=== PATIENT | male | born 1965 | race Caucasian/White ===

== ENCOUNTER 2025-02-12 22:55 | Emergency (ER) | payer SELFPAY ==
[2025-02-12 22:57] VITALS: BP 100/63
[2025-02-12 23:00] VITALS: BP 95/56
[2025-02-12 23:35] LABS: Hematocrit 39.0 % (39.0-52.0); Hemoglobin 13.0 g/dL (13.0-18.0); Mean Corp Hgb Conc. 33.3 g/dL (33.0-37.0); Mean Corpuscular Volume 98.7 fL (80.0-94.0); Nucleated Red Blood Cells % 0 % (-); Platelet Count 238 10^3/uL (130-400); Red Cell Dist. Width 12.7 % (11.5-14.5)
[2025-02-12 23:57] LABS: ALT (SGPT) 18 U/L (0-50); AST (SGOT) 27 U/L (17-59); Albumin 3.5 g/dl (3.5-5.0); Alkaline Phosphatase 44 U/L (38-126); Blood Urea Nitrogen 6 mg/dl (9-20); Calcium 8.3 mg/dl (8.4-10.2); Carbon Dioxide 27 mmol/L (22-30); Chloride 108 mmol/L (98-107); Estimated Creatinine Clearance 80 ml/min; Glucose 83 mg/dl (70-99); Potassium 4.2 mmol/L (3.5-5.1); Sodium 139 mmol/L (135-145); Total Protein 5.6 g/dl (6.3-8.2); eGFR > 60.00
[2025-02-13] VITALS (10 sets, daily range): BP systolic 76–91; BP diastolic 43–67
[2025-02-13] MEDS: NSS 1000 IV
[2025-02-13] MEDS: LR 1000 IV ×3 (00:21→03:34)
--- NOTE | 2025-02-13 00:23 | ED.GENMED ---
History of Present Illness
General
Chief Complaint: Alcohol Problem
Source: patient
Time Seen by Provider: 02/12/25 23:59
History of Present Illness
History of Present Illness:
59-year-old male brought to the emergency by ambulance after being found intoxicated outside of a local bar. Patient evidently began vomiting while in the bar from drinking too much. He also had some fecal incontinence. He was kicked out of the
bar and paramedics found him on the sidewalk. Patient endorses drinking too much. He was drinking [place]. Patient states he drinks a couple times a week. He does smoke. He denies recreational drug use. He was feeling well up until
today. He denies any previous surgical history. He does not take any medications.
Phy Exam
Physical Exam
Physical Exam:
General: Awake, Alert, Oriented X3. No acute distress.
Vitals: unremarkable
Head: Atraumatic
Eyes: Pupils equal, EOMI
Throat: Airway intact, no exudates
Neck: Trachea midline
Lungs: Clear and equal b/l
Heart: Regular rate, no murmurs
Abd: Soft, Nontender, No pulsatile mass
Neuro: Nonfocal
Skin: Warm, dry, no rash
Extremities: pulses equal b/l, no edema
Scores
Withdrawal Assessment of Alcohol
Withdrawal Assessment Completed?: Not applicable
Course
Orders/Labs/Results
Orders:
Orders
02/12/25 23:28
CMP [Comprehensive Metabolic Panel] Urgent
Complete Blood Count/With Diff Urgent
02/13/25 00:00
0.9% Sodium Chloride 1000 ml [Nss] 1,000 ml IV BOLUS
02/13/25 00:18
Lactated Ringers [Lr] 1,000 ml IV BOLUS
02/13/25 01:45
Lactated Ringers [Lr] 1,000 ml IV BOLUS
02/13/25 03:33
Lactated Ringers [Lr] 1,000 ml IV BOLUS
Abnormal Lab Results
02/12/25
23:28
RBC 3.95 L 10^6/uL
(4.70-6.10)
MCV 98.7 H fL
(80.0-94.0)
MCH 32.9 H pg
(27.0-31.0)
Absolute Neuts (auto) 7.0 H 10^3/uL
(1.4-6.5)
Chloride 108 H mmol/L
(98-107)
BUN 6 L mg/dl
(9-20)
Calcium 8.3 L mg/dl
(8.4-10.2)
Total Protein 5.6 L g/dl
(6.3-8.2)
02/12/25 23:28
02/12/25 23:28
Vital Signs
Initial and Last Documented VS:
Initial Vital Signs
Pulse Resp BP Pulse Ox
71 20 100/63 98
02/12/25 22:57 02/12/25 22:57 02/12/25 22:57 02/12/25 22:57
Last Documented Vital Signs
Temp Pulse Resp BP Pulse Ox
97.6 F 84 20 89/62 99
02/13/25 06:00 02/13/25 05:45 02/13/25 06:00 02/13/25 05:00 02/13/25 06:00
MDM/Problems Addressed
Differential Diagnosis Includes:
Alcohol intoxication, alcoholic ketoacidosis, dehydration
MDM/Problems Addressed:
Patient presents with acute alcohol intoxication. Mental status is improving. Blood pressure somewhat low but the patient is asymptomatic. He has got good capillary refill. He is mentating. Suspect blood pressure is low from alcohol
intoxication and the fact that he has been sleeping. Patient given IV fluids. Plan will be to get him up and walk him once he is sober enough to do so.
*Pulse Oximetry
SaO2: 93
Oxygen Mode of Delivery: Room air
Patient hypoxic: no
*Critical Care Note
Total Time (30-74mins, 75-104mins- exclusive of procedures): Not Applicable
ED Attending Note
-
Portions of this chart may have been created with voice recognition software.� Occasional wrong word or��sound alike� substitutions may have occurred due to the inherent limitations of voice recognition software.
Discharge Plan
Departure
Patient Disposition: Home (Routine Discharge)
Date of Disposition: 02/13/25
Time of Disposition: 05:54
Patient with high blood pressure during this ER visit?: No
Discharge Problem:
Alcohol intoxication
Instructions: Alcohol Poisoning (DC)
Prescriptions:
No Action
No Current Medications
0
Referrals:
NONE,* [Family Provider, Internal Medicine]
Interventions
Interventions:
*Risk Screen - Suicide Last Done: 02/12/25 22:57
*General Assessment Last Done: 02/12/25 22:57
*Neglect/Abuse Screening Last Done: 02/12/25 22:57
*ED- Fall Risk Assessment Last Done: 02/12/25 23:04
*ED COVID-19 Vaccine History Last Done: 02/12/25 22:57
*Nursing Disposition Last Done: 02/13/25 06:50
ED- Neurological Assessment Last Done: 02/12/25 23:39
ED-Psychological Assessment Last Done: 02/12/25 23:39
Discharge Date and Time
Discharge Date/Time: 02/13/25 06:50
Print Language: SYRIAC
== END 2025-02-13 06:50 | disposition home or self-care (01) ==
LOC: EMR 22:55
PROVIDERS: Student in an Organized Health Care Education/Training Program; EMERGENCY PHYSICIAN Emergency Medicine
DX: F10.129 Alcohol abuse with intoxication, unspecified (principal); Y90.9 Presence of alcohol in blood, level not specified; R11.10 Vomiting, unspecified
CPT/HCPCS: 96360; 96361; 99284; 80053; 85025